=== PATIENT | male | born 1940 | race Caucasian/White ===

== ENCOUNTER 2023-01-13 11:06 | Day surgery (SDC) | payer MEDICARE, BC ==
[2023-01-06 15:41] LABS: BASOPHILS % (AUTO) 0.3 % (0-1); EOSINOPHILS # (AUTO) 0.2 X10'3 (0-0.9); LYMPHOCYTES # (AUTO) 1.8 X10'3 (1.1-4.8); LYMPHOCYTES % (AUTO) 23.4 % (21-51); MEAN CORPUSCULAR HEMOGLOBIN 30.9 PG (27.0-31.0); MEAN CORPUSCULAR HGB CONC 34.1 g/dL (33.0-36.5); MEAN CORPUSCULAR VOLUME 90.5 FL (78-98); MEAN PLATELET VOLUME 7.8 FL (7.4-10.4); MONOCYTES # (AUTO) 0.7 X10'3 (0-0.9); MONOCYTES % (AUTO) 9.5 % (2-12); NEUTROPHILS # (AUTO) 4.8 X10'3 (1.8-7.7); NEUTROPHILS % (AUTO) 63.8 % (42-75); PRE OP HEMATOCRIT 36.9 % (42.0-52.0); PRE OP HEMOGLOBIN 12.6 g/dL (14.0-17.9); PRE OP PLATELET COUNT 188 X10'3 (140-440); PRE OP WHITE BLOOD COUNT 7.5 10'3 (4.8-10.8); RED BLOOD COUNT 4.08 X10'6 (4.70-6.10)
[2023-01-06 15:46] LABS: ALBUMIN 3.5 G/DL (3.4-5.0); ALBUMIN/GLOBULIN RATIO 1.1 (1.1-1.5); ALKALINE PHOSPHATASE 35 IU/L (46-116); BLOOD UREA NITROGEN 20 MG/DL (7-18); BUN/CREATININE RATIO 16.9 (10.0-20.0); CHLORIDE 101 MMOL/L (99-107); CREATININE 1.18 MG/DL (0.60-1.10); PRE OP ALT 23 U/L (30-65); PRE OP ANION GAP 6 (8-16); PRE OP AST 18 U/L (10-37); PRE OP BILIRUB, TOTAL 0.4 MG/DL (0.0-1.0); PRE OP GLUCOSE 153 MG/DL (70-104); PRE OP POTASSIUM 4.1 MMOL/L (3.4-5.1); PRE OP SODIUM 134 MMOL/L (135-145); TOTAL CARBON DIOXIDE 26.6 MMOL/L (24-32); TOTAL PROTEIN 6.8 G/DL (6.4-8.2); eGFR 59 ML/MIN
[2023-01-06 15:52] LABS: BILIRUBIN,URINE NEGATIVE (Neg); CLARITY,URINE CLEAR (Clear); COLOR,URINE YELLOW (Yellow); GLUCOSE, URINE NEGATIVE (Neg); KETONES,URINE NEGATIVE (Neg); LEUKOCYTE ESTERASE ,URINE NEGATIVE (Neg); NITRITES, URINE NEGATIVE (Neg); OCCULT BLOOD,URINE NEGATIVE (Neg); PROTEIN,URINE NEGATIVE (Neg); UROBILINOGEN,URINE 0.2 E.U/dL (0.2-1.0)
[2023-01-06 16:13] LABS: UA COLLECTION TYPE CLN CATCH MIDSTREAM
[2023-01-13] VITALS (8 sets, daily range): BP systolic 125–145; BP diastolic 66–79; PULSE 56–86; RESP 14–30; TEMP 98.4; O2SAT 93–99
[~2023-01-13] VITALS: Ht 177.8 cm; Wt 81.6 kg
[~2023-01-13 11:06] MED LIST: ASPI81TA52 PO; ATEN-27 PO; DOCUMENT DATE & TIME OF BETA-BLOCKER PO ONE; DULA0.75 SQ; MAGN400T39 PO; MULT-342 PO; OMEG1CAP2 PO; OMEP40CA21 PO; SIMV-42 PO; cefazolin 2gm/D5W 100mL 100 ML IV ONE; famotidine 20mg tablet PO ONE; ringers solution, lacted 1,000 ML IV SCH
[2023-01-13] MEDS ORDERED: BUPIVAcaine/PF 2.5 mg/ml (0.25%) 30ml vial ONE (14:23)
[2023-01-13] MEDS ORDERED: sevoflurane 250ml liquid IH ONE (14:31)
[2023-01-13] MEDS ORDERED: ondansetron/PF 4mg/2ml inj ONE (14:31)
[2023-01-13] MEDS ORDERED: fentaNYL/PF 50MCG/1 ML 2ML syringe ONE (14:41)
[2023-01-13] MEDS ORDERED: rocuronium 10mg/ml inj IV ONE (14:41)
[2023-01-13] MEDS ORDERED: propofol inj 20 ML IV ONE (14:41)
[2023-01-13] MEDS ORDERED: dexamethasone sod phosphate 4mg/ml inj. ONE (14:55)
[2023-01-13] MEDS ORDERED: BUPIVAcaine/PF 2.5 mg/ml (0.25%) 30ml vial IJ ONE (15:29)
[2023-01-13] MEDS ORDERED: acetaminophen 1,000mg/100ml IV 100 ML IV ONE (16:13)
[2023-01-13] MEDS ORDERED: sugammadex 200mg/2ml injection IV ONE (16:17)
--- NOTE | 2023-01-13 16:34 | NUR ---
Received from OR via , accompanied by Anesthesiologist and report given by Anesthesiolgist. PATIENT A&OX4, DENIES PAIN, V/S WNL, SCD ON , PIV 20G RUE, DERMABONDED LAPS SITES CLOSED CDI TO ABDOMEN. F/C DRAINING CLEAR YELLOW URINE.
[2023-01-13] MEDS ORDERED: ringers solution, lacted 1,000 ML IV SCH (16:45)
[2023-01-13] MEDS ORDERED: HYDROmorphone/PF 0.2 MG/ML SYRINGE IV PRN ×2 (16:45)
[2023-01-13] MEDS ORDERED: meperidine/PF 25mg/ml syringe IV PRN ×3 (16:45)
[2023-01-13] MEDS ORDERED: ondansetron/PF 4mg/2ml inj IV PRN (16:45)
[2023-01-13] MEDS ORDERED: HYDROcodone/acetaminophen 10/325mg tab PO ONE (17:00)
--- NOTE | 2023-01-13 17:44 | NUR ---
ALL DISCHARGE CRITERIA HAS BEEN MET. VSS, PAIN AT TOLERABLE LEVEL. ABLE TO SAFELY AMBULATE AND TRANSFER SELF. IV TAKEN OUT WITHOUT ANY COMPLICATIONS. ALL DISCHARGE INSTRUCTIONS COVERED WITH PATIENT AND ALL QUESTIONS ANSWERED. CATHETER CARE AND REMOVAL REVIEWED. INSTRUCTED FAMILY TO CONTACT DR. YOUNGER OFFICE TO FOLLOW UP ON CATHETER REMOVAL. PATIENT TAKEN OUT VIA WHEELCHAIR TO PERSONAL VEHICLE WHERE FAMILY DROVE PATIENT HOME.
== END 2023-01-13 17:44 | disposition home or self-care (01) ==
LOC: PAS 11:06
PROVIDERS: ATTEND Surgery
DX: K40.91 Unilateral inguinal hernia, without obstruction or gangrene, recurrent (principal); K42.9 Umbilical hernia without obstruction or gangrene; D17.6 Benign lipomatous neoplasm of spermatic cord; E11.22 Type 2 diabetes mellitus with diabetic chronic kidney disease; I12.9 Hypertensive chronic kidney disease with stage 1 through stage 4 chronic kidney disease, or unspecified chronic kidney disease; N18.30 Chronic kidney disease, stage 3 unspecified; E11.40 Type 2 diabetes mellitus with diabetic neuropathy, unspecified; I42.9 Cardiomyopathy, unspecified; K21.9 Gastro-esophageal reflux disease without esophagitis; E78.5 Hyperlipidemia, unspecified; Z98.41 Cataract extraction status, right eye; Z98.42 Cataract extraction status, left eye; Z98.890 Other specified postprocedural states; Z94.0 Kidney transplant status; Z79.899 Other long term (current) drug therapy; Z91.09 Other allergy status, other than to drugs and biological substances; Z87.891 Personal history of nicotine dependence; Z88.5 Allergy status to narcotic agent; Z88.8 Allergy status to other drugs, medicaments and biological substances; Z85.528 Personal history of other malignant neoplasm of kidney; Z85.828 Personal history of other malignant neoplasm of skin; Z79.82 Long term (current) use of aspirin
CPT/HCPCS: 36415; 49591; 49651; 80053; 81003; 82948; 85025; C1781; J0131; J0690; J1100; J2175; J2405; J2704; J3010; J3490; J7030; J7120; Z7506; Z7508; Z7512; A4215; A4618; C1758